=== PATIENT | female | born 1980 | race Two or more races ===

== ENCOUNTER 2025-07-26 11:04 | Emergency (ER) | payer MEDICAID, OTHER ==
[~2025-07-26] VITALS: Ht 139.7 cm; Wt 48.1 kg
[2025-07-26] MEDS ORDERED: PROM1SOL4 PO (12:08)
[2025-07-26] MEDS ORDERED: BENZ100C97 PO (12:08)
[2025-07-26] MEDS ORDERED: AZIT-43 PO (12:08)
[2025-07-26] MEDS ORDERED: GUAI600T78 PO (12:08)
--- NOTE | 2025-07-26 12:17 | ED.PDOC ---
History of Present Illness HPI Comments 45-year-old, Upper Sorbian-speaking female presents with a chief complaint of productive cough, with associated chest wall and back pain x1 week. The patient also reports having diarrhea alongside with other symptoms during earlier initial duration of symptoms. She reports taking no medications for symptoms prior to ED arrival. Phlegm is green in appearance. Does not have any shortness of breath, weakness, fever, or further acute symptoms. Chief Complaint: Cough Time Seen by MD: 12:00 Reviewed Notes: Nurses Notes, Medications, Allergies Allergies: Coded Allergies: NO KNOWN ALLERGIES (Unverified , 07/26/25) Home Meds Active Scripts Guaifenesin (Mucinex) 600 Mg Tab, 1 TAB PO BID for 10 Days, #20 TAB 0 Refills Prov:TEJ RAMON NP 07/26/25 Promethazine-Dm (Promethazine Dm 6.25-15 mg/5Ml) 1 Kina Kina, 5 ML PO Q8HP PRN for 10 Days, #150 ML 0 Refills Prov:TEJ RAMON NP 07/26/25 Benzonatate (Benzonatate) 100 Mg Cap, 1 CAP PO TID for 10 Days, #30 CAP 0 Refills Prov:TEJ RAMON NP 07/26/25 Azithromycin (Azithromycin) 250 Mg Tab, 250 MG PO DAILY MDD 500 for 5 Days, #6 TAB 0 Refills 2 TABLETS ORALLY ON DAY ONE, THEN 1 TABLET ORALLY DAILY FOR 4 DAYS Prov:TEJ RAMON NP 07/26/25 Information Source: Patient Mode of Arrival: Ambulatory Past Medical History PAST MEDICAL HISTORY: Denies Surgical History: Denies all surgeries [employer] History: No Pertinent [employer] History Family History Family History: Unknown Social History Smoker: Non-Smoker Alcohol: Denies ETOH Use Drugs: Denies Drug Use Lives In: Home All Other Systems: Reviewed and Negative (As per HPI) Physical Exam General Appearance: No Apparent Distress, Normal HEENT: Normal ENT Inspection, Pharynx Normal, TMs Normal Neck: Full Range of Motion, Non-Tender, Normal, Normal Inspection Respiratory: Chest Non-Tender, Lungs Clear, No Accessory Muscle Use, No Respiratory Distress, Normal Breath Sounds Cardiovascular: No Murmur, No Gallop, Regular Rate/Rhythm Breast Exam: Deferred Gastrointestinal: No Organomegaly, Non Tender, No Pulsatile Mass, Normal Bowel Sounds, Soft Genitalia: Deferred Pelvic: Deferred Rectal: Deferred Extremities: No calf tenderness, Normal capillary refill, Normal inspection, Normal range of motion, Non-tender, No pedal edema Musculoskeletal : Apperance: Normal Neurologic: Alert, account resolution specialist II-XII nml as Tested, No Motor Deficits, Normal Affect, Normal Mood, No Sensory Deficits Cerebellar Function: Normal Reflexes: Normal Skin: Dry, Normal Color, Warm Lymphatic: No Adenopathy Was a procedure done? Was a procedure done?: No Differential Dx Considerations may include: Bronchitis, viral syndrome, URI, pneumonia, among others X-Ray, Labs, Meds, VS Vital Signs Date Time Temp Pulse Resp B/P (MAP) Pulse Ox O2 Delivery O2 Flow Rate FiO2 07/26/25 12:21 76 16 97 Room Air 07/26/25 12:21 98.9 77 16 122/86 (98) 97 98.9 07/26/25 11:09 98.0 75 17 136/94 97 98.0 X-Ray, Labs, Meds, VS Comment 45-year-old, Upper Sorbian-speaking female presents with a chief complaint of productive cough, with associated chest wall and back pain x1 week. Patient arrives alert and oriented, ABC's intact, afebrile, vital signs stable, saturating well in room air The patient is overall well-appearing nontoxic on exam. On physical exam, respirations even and unlabored, clear to auscultation bilaterally. Oxygen stable on room air. Did not have any focal lung findings and therefore chest x-ray was not indicated during this exam Low suspicion of strep pharyngitis given physical exam findings and patient's presenting symptoms No signs of meningismus on exam Overall, the patient is well hydrated and nontoxic. Plan for symptomatic control for fever and pain as needed. The patient was able to tolerate p.o. intake in the ED. at this time, patient is safe for discharge home. The exam findings and plan discussed. We will discharge home with PCP follow up and strict return precautions. Discussed that cough can linger up to 6 weeks after viral URI Supportive care and return precautions discussed Recommended vitamin C, rest, handwashing, and symptomatic care. Expect 2-week course with possibly of cough lingering up to 6 weeks. Nonpharmacological remedies for fluids has been recommended as well Additional MDM Review of External, Non-ED records: External records reviewed. Discussion with independent historian (EMS, family) history obtained from the patient/parents (if applicable) at bedside Chronic conditions affecting care: None Social determinants of health affecting care: None Consideration of admission (observation or admission): I considered escalation of care to admission for this patient, however given the reassuring workup, the patient is safe for outpatient management. Discussion with the Radiology: No Tests considered but not performed: Prescription medication considered but not given: Time of 1ST Reevaluation: 12:30 Reevaluation 1ST: Improved Patient Education/Counseling: Diagnosis, Treatment Family Education/Counseling: No Family Present SEPSIS Sepsis Screen Date sepsis recognized/suspect: Jul 26, 2025 Time Sepsis recognized/suspect: 1109 Recent Procedure: No On Antibiotic Therapy: No Respiratory Rate >20: No Heart Rate >90: No Temp<36 C (96.8 F) or >38.3 C: No SBP <90 or MAP <65 mmHG: No New Acute Mental Status Change: No Is the patient on CPAP, BIPAP,: No Vital Signs Date Time Temp Pulse Resp B/P (MAP) Pulse Ox O2 Delivery O2 Flow Rate FiO2 07/26/25 12:21 76 16 97 Room Air 07/26/25 12:21 98.9 77 16 122/86 (98) 97 98.9 07/26/25 11:09 98.0 75 17 136/94 97 98.0 Departure 1 Departure Time of Disposition: 12:28 Impression: Primary Impression: Bronchitis Disposition: 01 HOME / SELF CARE / HOMELESS Condition: Stable e-Prescriptions Guaifenesin (Mucinex) 600 Mg Tab 1 TAB PO BID for 10 Days, #20 TAB 0 Refills Prov: TEJ RAMON NP 07/26/25 Promethazine-Dm (Promethazine Dm 6.25-15 mg/5Ml) 1 Kina Kina 5 ML PO Q8HP PRN for 10 Days, #150 ML 0 Refills Prov: TEJ RAMON NP 07/26/25 Benzonatate (Benzonatate) 100 Mg Cap 1 CAP PO TID for 10 Days, #30 CAP 0 Refills Prov: TEJ RAMON NP 07/26/25 Azithromycin (Azithromycin) 250 Mg Tab 250 MG PO DAILY MDD 500 for 5 Days, #6 TAB 0 Refills 2 TABLETS ORALLY ON DAY ONE, THEN 1 TABLET ORALLY DAILY FOR 4 DAYS Prov: TEJ RAMON NP 07/26/25 Discharged With: Self Critical Care Note Critical Care Time?: No Stability Stability form required: No Heart Score Heart Score: Heart Score Response (Comments) Value History N/A 0 EKG N/A 0 Age N/A 0 Risk Factors N/A 0 Troponin N/A 0 Total 0 I personally scribed for TEJ RAMON [employer] ([email or web address]) on 07/26/25 at 12:17. Electronically submitted by Edgar Everett ([email or web address]). TEJ RAMON NP Jul 26, 2025 12:17
[2025-07-26 12:21] VITALS: BP 122/86; PULSE 76; RESP 16; TEMP 98.9; O2SAT 97
== END 2025-07-26 12:23 | disposition home or self-care (01) ==
LOC: ER 11:04
DX: J40 Bronchitis, not specified as acute or chronic (principal); Z79.899 Other long term (current) drug therapy